=== PATIENT | male | born 1990 | race American Indian/Alaskan Native ===

== ENCOUNTER 2020-01-31 15:51 | Emergency (ER) | payer SELFPAY ==
[2020-01-31 16:09] VITALS: BP 154/95
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
== END 2020-01-31 18:46 | disposition left against medical advice (07) ==
LOC: ED 15:51
DX: M79.602 Pain in left arm (principal)
CPT/HCPCS: 99281